=== PATIENT | female | born 1980 | race Caucasian/White ===

== ENCOUNTER 2017-03-30 05:40 | Outpatient (CLI) | payer BC ==
[~2017-03-30] VITALS: Ht 160 cm; Wt 90.7 kg
[2017-03-30] MEDS ORDERED: OMEP20TA7 PO (15:57)
[2017-04-01] MEDS ORDERED: FAMO-119 PO (13:27)
== END 2017-03-30 16:00 ==
LOC: PREOP 05:40
PROVIDERS: ATTEND Internal Medicine
DX: Z01.818 Encounter for other preprocedural examination (principal); K21.9 Gastro-esophageal reflux disease without esophagitis

== ENCOUNTER 2017-04-01 12:38 | Day surgery (SDC) | payer BC ==
--- NOTE | 2017-03-30 06:17 | HISTORY AND PHYSICAL ---
DATE OF SERVICE: EGD HISTORY AND PHYSICAL HISTORY OF PRESENT ILLNESS: The patient is a 36-year-old white female referred by Dr. Rhodes for EGD evaluation. She had been on proton pump inhibitor therapy for several years, but after hearing negative reports, she discontinued the medication last year. Since that time, she has had to take daily Tums most often after the evening meal. She has intermittent dysphagia to solids and odynophagia. She denies any nighttime symptomatology and denies any chronic problems of sore throats, cough or weight loss. She denies bright red blood per rectum or melena and has noted no bowel habit change. PAST MEDICAL HISTORY: Otherwise, noncontributory. PAST SOCIAL HISTORY: She has a distant 1-pack-year smoking history, quit while in college. She has no significant alcohol intake and is a local healthcare network consultant. PAST SURGICAL HISTORY: She has had lumbar microdiskectomy several years ago. She has had three C-sections, a distant tonsillectomy and adenoidectomy and in the summer of 2015, underwent laparoscopic cholecystectomy for acute noncomplicated cholecystitis. FAMILY HISTORY: She is not aware of any family history for GI tract malignancy, Berry's esophagus or inflammatory bowel disease. PHYSICAL EXAMINATION: GENERAL: Reveals a pleasant overweight white female in no acute distress. VITAL SIGNS: Height roughly 5 feet tall. Weight 205 pounds. Blood pressure 120/70. HEENT: Unremarkable. She has a Mallampati class 3 oropharyngeal configuration. Pharynx reveals no evidence for exudate. NECK: Reveals no JVD, adenopathy or bruits. CHEST: Clear. CARDIOVASCULAR: Reveals a regular rate and rhythm without murmur, S3 or S4. ABDOMEN: Soft, supple without mass, organomegaly or tenderness. Bowel sounds are positive. No bruits are noted. EXTREMITIES: Reveal no cyanosis, clubbing or edema. ASSESSMENT: Refractory reflux with intermittent dysphagia to solids. The patient is being set up for esophagogastroduodenoscopy evaluation on 04/01/2017. Preoperative instructions were given and questions were answered. I thank you for the referral of this pleasant lady. Job ID: [id number] DocumentID: [id number] Dictated Date: 03/28/2017 16:36:16 Vascular Neurologist Date: 03/28/2017 17:15:04 Dictated By: VANI CARBAJAL MD
[~2017-04-01] VITALS: Ht 160 cm; Wt 90.7 kg
[~2017-04-01 12:38] MED LIST: OMEP20TA7 PO
[2017-04-01] MEDS ORDERED: D5 LR IV SOLUTION 1,000 ML IV ONE (12:45)
[2017-04-01] MEDS ORDERED: HURRICAINE EXT TUBE (BENZOCAINE) ONE (12:53)
[2017-04-01] MEDS ORDERED: LIDOCAINE JELLY 2% (XYLOCAINE) 5 ML TUBE ONE (12:53)
[2017-04-01] MEDS: fentaNYL INJECTION 100 MCG/2 ML AMP IVP PRN ×2 (13:07→13:15)
[2017-04-01] MEDS: MIDAZOLAM 2 MG/2 ML (VERSED) VIAL IVP PRN ×3 (13:08→13:20)
--- NOTE | 2017-04-01 13:08 | Pre-Op Note & Conscious Sedat ---
Pre-Operative Progress Note H&P Reviewed The H&P was reviewed, patient examined and no changes noted. Date H&P Reviewed: Apr 01, 2017 Time H&P Reviewed: 13:00 Conscious Sedation Pre-Proced ASA Class: 2 Airway Mallampati Classification: ([place] appropriate class) I. II. III, IV Lungs Heart ASA score ASA 1: a normal healthy patient ASA 2: a patient with a mild systemic disease (mid diabetes, controlled hypertension, obesity ASA 3: a patient with a severe systemic disease that limits activity (angina , COPD, prior Myocardial infarction) ASA 4: a patient with an incapacitating disease that is a constant threat to life (CHF, renal failure) ASA 5: a moribund patient not expected to survive 24 hrs. (ruptured aneurysm) ASA 6: a declared brain patient whose organs are being harvested. For emergent operations, add the letter E after the classification Grade 3 Sedation Plan: Analgesia, Amnesia, Plan communicated to team members, Discussed options with patient/fam, Discussed risks with patient/fam Note The patient is an appropriate candidate to undergo the planned procedure, sedation, and anesthesia. The patient immediately re-assessed prior to indication. VANI CARBAJAL MD Apr 01, 2017 13:08
[2017-04-01] MEDS ORDERED: FAMO-119 PO (13:27)
[2017-04-01 13:40] VITALS: BP 110/64
[2017-04-01] MEDS ORDERED: LIDOCAINE JELLY 2% (XYLOCAINE) 5 ML TUBE TOP ONE (13:45)
[2017-04-01] MEDS ORDERED: HURRICAINE EXT TUBE (BENZOCAINE) XX ONE (13:45)
[2017-04-01 14:00] VITALS: BP 103/67
[2017-04-01 14:09] VITALS: BP 124/83
[2017-04-01 14:18] VITALS: BP 124/83
--- NOTE | 2017-04-01 15:19 | OPERATIVE REPORT ---
DATE OF SERVICE: EGD SUMMARY INDICATION FOR THE PROCEDURE: Refractory reflux symptoms. DESCRIPTION OF PROCEDURE: The patient was placed in the left lateral decubitus position. The endoscope was inserted in the oral cavity and under direct visualization, the esophagus was intubated. The endoscope was passed down the esophagus through the stomach and second portion of the duodenum. A careful inspection was made as the endoscope was withdrawn. FINDINGS: Proximal and mid esophagus were unremarkable. Two small 1inear ulcerations were noted at the Z line involving about 10% of the diameter compatible with LA grade A erosive esophagitis. There were no evidence of rings, webs or strictures. No gross evidence to suggest Berry's change. Photograph was obtained and a biopsy from the largest ulcer was submitted for histopathology. The cardia, fundus and antrum of the stomach were unremarkable. The Pylorus, the pyloric channel, the duodenal bulb and second portion of duodenum were normal as well with normal villous architecture to gross inspection of the duodenal bulb and second portion of the duodenum. ASSESSMENT: Small to moderate size hiatal hernia is present with [place] grade A erosive esophagitis. No other abnormalities noted on today's procedure and there was no gross evidence to suggest underlying Berry's change. The patient states that she has only been taking p.r.n. antacid therapy. With concerns about long-term PPI use, I advocated that she try Pepcid 20 mg p.o. b.i.d. with p.r.n. antacid therapy. Non-medication antireflux measures were discussed as well. I thank you for the referral of this pleasant lady. Job ID: [id number] DocumentID: [id number] Dictated Date: 04/01/2017 13:32:36 Monotype Caster Date: 04/01/2017 15:18:56 Dictated By: VANI CARBAJAL MD [facility]
== END 2017-04-01 14:10 | disposition home or self-care (01) ==
LOC: ENDO 12:38
PROVIDERS: ATTEND Internal Medicine
DX: K22.10 Ulcer of esophagus without bleeding (principal); K44.9 Diaphragmatic hernia without obstruction or gangrene; Z87.891 Personal history of nicotine dependence
CPT/HCPCS: 84703

== ENCOUNTER → 2018-11-23 | Outpatient (CLI) | payer BC ==
[~2018-11-23] MED LIST changes: +FAMO-119 PO
--- NOTE | 2018-11-23 15:45 | Diagnostic Imaging Report ---
INDICATION: Lump in the left upper arm. FINDINGS: Sonographic interrogation of the area of lump was performed. There is an echogenic nodule measuring 9 mm x 4 mm x 7 mm. No significant internal vascularity is seen. Features are suggestive of a lipoma. No other abnormalities are seen. IMPRESSION: Probable subcentimeter lipoma at the area of palpable abnormality. Continued follow-up is recommended to confirm stability. Dictated by: Dictated on workstation # [id number]
== END ==
LOC: RAD 15:04
PROVIDERS: ATTEND Family Medicine
DX: R22.32 Localized swelling, mass and lump, left upper limb (principal)
CPT/HCPCS: 76881

== ENCOUNTER → 2020-12-12 | Outpatient (CLI) | payer BC ==
[~2020-12-12] MED LIST changes: +LACTATED RINGERS 1,000 ML IV SCH
[2020-12-12 09:50] VITALS: BP 147/100
== END ==
LOC: SDC 09:37
PROVIDERS: ATTEND Family Medicine
DX: E86.0 Dehydration (principal)
CPT/HCPCS: 96360

== ENCOUNTER → 2021-01-13 | Outpatient (CLI) | payer BC ==
[~2021-01-13] MED LIST changes: -LACTATED RINGERS 1,000 ML IV SCH
--- NOTE | 2021-01-13 15:52 | Diagnostic Imaging Report ---
PROCEDURE: US Non-ob pelvis comp/trans. TECHNIQUE: Multiple realtime grayscale images were obtained of the pelvis in various projections endovaginally. Transabdominal imaging was also performed. INDICATION: Abnormal uterine bleeding. FINDINGS: Uterus measures 10 x 5.1 x 4.7 cm. The endometrium measures 9 mm. There is irregular area of soft tissues in the lower uterine segment near the cervix approximately 1.2 cm. There is some fluid within the lower uterine segment. There is a heterogeneous appearing nodular region in the fundus of the uterus measuring 2.9 cm. Right ovary measures 4 x 2 x 3.4 cm. Left ovary measures 5 x 2.3 x 2.1 cm. There is normal blood flow to both ovaries. There is no free fluid. IMPRESSION: 1. There is a endometrial thickening with concern of endometrial polyp measuring 1.2 cm in the lower uterine segment. There is some associated fluid. Dictated by: Dictated on workstation # [id number]
--- NOTE | 2021-01-14 08:06 | Diagnostic Imaging Report ---
Ultrasound of the left breast. Indication: Left breast pain There are no prior left breast ultrasound examinations available for comparison. The mammogram of the left breast performed earlier today failed to show any sign of malignancy. On this exam there is no discrete solid or cystic mass identified. There is a small 6 x 6 x 5 mm hypoechoic area in the 7 o'clock position approximately 5 cm from the nipple. This is in the region of the patient's pain. This does not have the typical appearance of a cyst and there is no vascularity associated with this finding to suggest that this is neoplastic in nature. This could represent a very small amount of fluid within the duct. It may prove worthwhile to have a short-term (6 month) followup mammogram and ultrasound exam of the left breast for continued evaluation. Impression: The small hypoechoic area in the 7 o'clock position left breast is of uncertain etiology although most likely benign. There is no solid mass to suggest malignancy and there is no sign of an acute abnormality account for the patient's breast pain. Recommendations as above. ACR BI-RADS Category 3: Probably benign findings. Result letter will be mailed to the patient. Note: At least 10% of breast cancer is not imaged by mammography. Dictated by: Dictated on workstation # [id number]
--- NOTE | 2021-01-14 11:44 | Diagnostic Imaging Report ---
EXAMINATION: Digital mammogram bilateral screening with CAD. INDICATION: Screening. COMPARISON: This is the patient's baseline study. PERSONAL HISTORY: The patient does note tenderness in the left breast. FINDINGS: The fibroglandular tissue in both breasts is heterogeneously dense. This does limit the sensitivity of this exam. There is no primary or secondary sign of malignancy noted. There is no abnormality to account for the patient's left breast tenderness either. Reportedly, ultrasound has been scheduled for further study. IMPRESSION: 1. There is no evidence for malignancy or for an acute abnormality. 2. Ultrasound of the left breast is pending for further evaluation. ACR BI-RADS Category 0: Incomplete. (Needs additional imaging evaluation). Result letter will be mailed to the patient. Note: At least 10% of breast cancer is not imaged by mammography. Dictated by: Dictated on workstation # [id number]
== END ==
LOC: RAD 12:48
PROVIDERS: ATTEND Obstetrics & Gynecology
DX: Z12.31 Encounter for screening mammogram for malignant neoplasm of breast (principal); N93.9 Abnormal uterine and vaginal bleeding, unspecified; N64.4 Mastodynia; R93.89 Abnormal findings on diagnostic imaging of other specified body structures
CPT/HCPCS: 76642; 76830; 76856; 77063; 77067

== ENCOUNTER 2021-01-27 06:33 | Outpatient (CLI) | payer BC ==
[~2021-01-27] VITALS: Ht 160 cm; Wt 108.6 kg
[2021-01-28] MEDS ORDERED: OMEP20TA7 PO (10:34)
== END 2021-01-28 10:41 | disposition home or self-care (01) ==
LOC: PREOP 06:33
PROVIDERS: ATTEND Obstetrics & Gynecology
DX: Z01.818 Encounter for other preprocedural examination (principal)

== ENCOUNTER 2021-02-03 08:52 | Day surgery (SDC) | payer BC ==
[2021-02-03] VITALS (11 sets, daily range): BP systolic 91–139; BP diastolic 57–83
[~2021-02-03] VITALS: Ht 160 cm; Wt 108.6 kg
[2021-02-03 09:22] LABS: BILIRUBIN,URINE NEGATIVE (NEGATIVE); CLARITY,URINE CLEAR; COLOR,URINE YELLOW; GLUCOSE, URINE (UA) NEGATIVE (NEGATIVE); KETONES,URINE NEGATIVE (NEGATIVE); LEUKOCYTE ESTERASE ,URINE NEGATIVE (NEGATIVE); NITRITE,URINE NEGATIVE (NEGATIVE); PH,URINE 7.5 (5-9); PROTEIN,URINE NEGATIVE (NEGATIVE)
[2021-02-03 09:28] LABS: BASOPHILS % (AUTO) 1 % (0-10); EOSINOPHILS # (AUTO) 0.1 10^3/uL (0.0-0.3); EOSINOPHILS % (AUTO) 2 % (0-10); HEMATOCRIT 40 % (35-52); HEMOGLOBIN 13.1 g/dL (11.5-16.0); LYMPHOCYTES # (AUTO) 1.7 10^3/uL (1.0-4.0); LYMPHOCYTES % (AUTO) 28 % (12-44); MEAN CORPUSCULAR HEMOGLOBIN 29 pg (25-34); MEAN CORPUSCULAR HGB CONC 33 g/dL (32-36); MEAN CORPUSCULAR VOLUME 88 fL (80-99); MEAN PLATELET VOLUME 9.8 fL (9.0-12.2); MONOCYTES # (AUTO) 0.5 10^3/uL (0.0-1.0); MONOCYTES % (AUTO) 9 % (0-12); NEUTROPHILS # (AUTO) 3.7 10^3/uL (1.8-7.8); NEUTROPHILS % (AUTO) 61 % (42-75); PLATELET COUNT 341 10^3/uL (130-400); WHITE BLOOD COUNT 6.1 10^3/uL (4.3-11.0)
[2021-02-03] MEDS ORDERED: ceFAZolin 2 GM IV Premixed 50 ML IV ONE ×2 (09:30→10:00)
[2021-02-03] MEDS ORDERED: LACTATED RINGERS 1,000 ML IV PRN ×2 (09:30→10:00)
[2021-02-03 09:49] LABS: BACTERIA,URINE FEW /HPF; WBC,URINE 0-2 /HPF
--- NOTE | 2021-02-03 11:01 | History & Physical-Surgical ---
HPO-Surgical History of Present Illness Chief Complaint: thickened endometrium Diagnosis/Surgical Indication: thickened endometrium, AUB, skin lesion Procedure: hysteroscopy, D&C, removal sking lesion Date of Surgery: Feb 03, 2021 Weight (Pounds): 200 Weight (Ounces): 0.0 Height (Feet): 5 Height (Inches): 3.00 Allergies and Home Medications Allergies Coded Allergies: morphine (Verified Allergy, Unknown, makes me claustrophic, 03/30/17) Patient Home Medication List Home Medication List Reviewed: Yes Omeprazole (Omeprazole) 20 Mg Tablet.dr, 20 MG PO DAILY, (Reported) Entered as Reported by: SANTOS LUZ on 01/28/21 1034 Last Action: Reviewed Discontinued Medications Famotidine (Pepcid) 20 Mg Tablet, 20 MG PO BID Discontinued Reason: No Longer Taking Prescribed by: VANI CARBAJAL on 04/01/17 1327 Past Gzlgehj-Izogyf-Krrnys Hx Patient Social History Marrital Status: Number of Children: 3 Number of living children: 3 Employed/Student: employed Smoking Status: Former Smoker Former Smoker, Quit: Mar 30, 1997 2nd Hand Smoke Exposure: No Recent Hopitalizations: No Alcohol Use?: No Seasonal Allergies Seasonal Allergies: No Surgeries Yes (c/s x3, discectomy, bladder neck sx x2, ) Section, Gallbladder, Tonsillectomy, Tubal Ligation Respiratory No Currently Using CPAP: No Currently Using BIPAP: No Cardiovascular No Neurological No Reproductive System Hx : 3 Hx Para: 3 Sexually Transmitted Disease: No HIV/AIDS: No Female Reproductive Disorders: Menstrual Problems Genitourinary No Gastrointestinal Yes Gastroesophageal Reflux Musculoskeletal No Endocrine History of Endocrine Disorders: No HEENT History of HEENT Disorders: No Cancer No Psychosocial History of Psychiatric Problem: No Integumentary History of Skin or Integumenta: Yes (skin tag) Blood Transfusions History of Blood Disorders: No Family Medical History Significant Family History: No Pertinent Family Hx Exam Vital Signs Vital Signs 02/03/21 09:45 Temp 36.6 Pulse 77 Resp 18 B/P (MAP) 118/79 (92) Pulse Ox 99 O2 Delivery Room Air Capillary Refill : Labs Laboratory Tests Test 02/03/21 09:05 02/03/21 09:20 Range/Units Urine Color YELLOW Urine Clarity CLEAR Urine pH 7.5 5-9 Urine Specific [place] 1.020 1.016-1.022 Urine Protein NEGATIVE NEGATIVE Urine Glucose (UA) NEGATIVE NEGATIVE Urine Ketones NEGATIVE NEGATIVE Urine Nitrite NEGATIVE NEGATIVE Urine Bilirubin NEGATIVE NEGATIVE Urine Urobilinogen 0.2 < = 1.0 MG/DL Urine Leukocyte Esterase NEGATIVE NEGATIVE Urine RBC (Auto) NEGATIVE NEGATIVE Urine RBC NONE /HPF Urine WBC 0-2 /HPF Urine Squamous Epithelial Cells 10-25 H /HPF Urine Crystals NONE /LPF Urine Bacteria FEW H /HPF Urine Casts NONE /LPF Urine Mucus SMALL H /LPF Urine Culture Indicated NO White Blood Count 6.1 4.3-11.0 10^3/uL Red Blood Count 4.56 3.80-5.11 10^6/uL Hemoglobin 13.1 11.5-16.0 g/dL Hematocrit 40 35-52 % Mean Corpuscular Volume 88 80-99 fL Mean Corpuscular Hemoglobin 29 25-34 pg Mean Corpuscular Hemoglobin Concent 33 32-36 g/dL Red Cell Distribution Width 13.3 10.0-14.5 % Platelet Count 341 130-400 10^3/uL Mean Platelet Volume 9.8 9.0-12.2 fL Immature Granulocyte % (Auto) 0 % Neutrophils (%) (Auto) 61 42-75 % Lymphocytes (%) (Auto) 28 12-44 % Monocytes (%) (Auto) 9 0-12 % Eosinophils (%) (Auto) 2 0-10 % Basophils (%) (Auto) 1 0-10 % Neutrophils # (Auto) 3.7 1.8-7.8 10^3/uL Lymphocytes # (Auto) 1.7 1.0-4.0 10^3/uL Monocytes # (Auto) 0.5 0.0-1.0 10^3/uL Eosinophils # (Auto) 0.1 0.0-0.3 10^3/uL Basophils # (Auto) 0.0 0.0-0.1 10^3/uL Immature Granulocyte # (Auto) 0.0 0.0-0.1 10^3/uL General Appearance: Alert HEENT: Atraumatic Respiratory: Clear to Auscultation Cardiovascular: Regular Rate Assessment/Plan Assessment and Plan thickened endometrium abnormal uterine bleeding skin lesion Plan - hysteroscopy, dilation and curettage excision of skin lesion Risk of procedure, including bleeding, infection, injury to bowel bladder and ureter has been explained to the patient and proper consents have been signed. Due to findings of probably polyp vs submucosal fibroid, will proceed with diagnostic hysteroscopy and then removal of "mass" with dilation and curettage. Proper consents are signed. Will use prophylactic antibiotics and SCDs THAD CHOWDHURY DO Feb 03, 2021 11:01
[2021-02-03] MEDS ORDERED: LIDOCAINE/EPI 1%-1:200,000 (XYLOCAINE) 30 ML VIAL ONE (11:20)
[2021-02-03] MEDS ORDERED: proPOfol 200 MG/20 ML (DIPRIVAN) VIAL IV ONE (11:26)
[2021-02-03] MEDS ORDERED: MIDAZOLAM 2 MG/2 ML (VERSED) VIAL ONE (11:26)
[2021-02-03] MEDS ORDERED: SEVOFLURANE (ULTANE) 15 ML INHAL SOLN ONE (11:26)
[2021-02-03] MEDS ORDERED: ONDANSETRON 4 MG/2 ML (SDV) Z0FRAN ONE (11:26)
[2021-02-03] MEDS ORDERED: fentaNYL INJ 100 MCG/2 ML AMP ONE (11:26)
[2021-02-03] MEDS ORDERED: LIDOCAINE PF 2% 5 ML (XYLOCAINE) VIAL ONE (11:26)
--- NOTE | 2021-02-03 12:37 | Operative Report ---
Operative Report Date of Procedure/Surgery Feb 03, 2021 Surgeon (s) THAD CHOWDHURY DO Digital Artist (s): NA Post-Operative Diagnosis endometrial polyp abnormal uterine bleeding left inner thigh papilloma/achrochordon Procedure Performed hysteroscopy, dilation and curettage excision of left thich lesion Description of Procedure Anesthesia Type: General Estimated blood loss (mL): minimal Specimen(s) collected/removed endometrial curettings skin achrochordon Description of the Procedure With informed consent the patient was taken to the operating room where general anesthesia was found to be adequate. She was then prepped and draped in the usual sterile fashion in the dorsolithotomy position. The bladder was drained of clear, yellow urine with a straight cath. A speculum was placed in the vagina and the cervix was grasped with a sharp toothed tenaculum. The cervix was then gently dilated with Edy dilators. A hysteroscope was then inserted and hysteroscopy was done. There was proliferative appearing and polypoid tissue noted. After removing the scope, I did a curettage until a gritty texture was heard. I then repeated the scope and this revealed that the polypoid tissue was removed. I removed the instruments from the vagina and uterus. Attention was turned to the left leg which had previously been prepped. I injected Marcaine to create a wheal and elevated the lesion. I then excision the lesion with a scalpel. I controlled bleeding with silver nitrate. The patient was then awakened and taken to recovery in a stable condition. Sponge, lap, needle and instrument counts were correct times two. Findings of the Procedure elevated 2 mm lesion on the left inner thigh proliferative endometrium with polypoid type lesions Allergies and Home Medications Allergies Coded Allergies: morphine (Verified Allergy, Unknown, makes me claustrophic, 03/30/17) Patient Home Medication List Home Medication List Reviewed: Yes Acetaminophen (Acetaminophen) 500 Mg Tablet, 1,000 MG PO Q8H PRN for PAIN-MILD (1-4) Prescribed by: THAD CHOWDHURY on 02/03/21 1238 Ibuprofen (Ibu) 600 Mg Tablet, 600 MG PO Q6HR Prescribed by: THAD CHOWDHURY on 02/03/21 1238 Omeprazole (Omeprazole) 20 Mg Tablet.dr, 20 MG PO DAILY, (Reported) Entered as Reported by: SANTOS LUZ on 01/28/21 1034 Last Action: Reviewed THAD CHOWDHURY DO Feb 03, 2021 12:37
[2021-02-03] MEDS ORDERED: ACET-93 PO (12:38)
[2021-02-03] MEDS ORDERED: IBUP-844 PO (12:38)
--- NOTE | 2021-02-03 12:39 | Discharge Inst-Women's Service ---
Discharge Inst-Women's Serv Depart Medication/Instructions New, Converted or Re-Newed RX: Transmitted to Pharmacy Instructions expect light bleeding, spotting for 7-10 days Final Diagnosis endometrial polyp skin lesion abnormal uterine bleeding Problems Reviewed?: Yes Consults/Follow Up Additional Follow Up: Yes (1-2 weeks) Activity Activity: Activity as Tolerated Driving Instructions: No Driving for 24 Hours NO SMOKING: NO SMOKING Diet Discharge Diet: No Restrictions Symptoms to Report to : Pain Increased, Fever Over 101 Degrees F, Vaginal Bleeding Increase, Vaginal Discharge Foul For Any Problems or Questions: Contact Your Physician THAD CHOWDHURY DO Feb 03, 2021 12:39
[2021-02-03] MEDS ORDERED: HYDROmorphone 2 MG/ML VIAL (DILAUDID) IV ONE (12:45)
[2021-02-03] MEDS ORDERED: ONDANSETRON 4 MG/2 ML (SDV) Z0FRAN IVP PRN (12:45)
[2021-02-03] MEDS ORDERED: fentaNYL INJ 100 MCG/2 ML AMP IVP ONE (12:45)
[2021-02-03] MEDS ORDERED: ACETAMINOPHEN 500 MG TAB (TYLENOL) PO PRN (12:45)
[2021-02-03] MEDS ORDERED: KETOROLAC 30 MG/ML VIAL IVP PRN (12:45)
[2021-02-03] MEDS ORDERED: PROMETHAZINE INJ 25 MG/ML (PHENERGAN) AMP IVP ONE (12:45)
[2021-02-03] MEDS ORDERED: MEPERIDINE (DEMEROL) INJ 50 MG/ML IVP ONE (12:45)
--- NOTE | 2021-02-03 12:47 | Anesthesia-General Post-Op ---
General Patient Condition Mental Status/LOC: Same as Preop Cardiovascular: Satisfactory Nausea/Vomiting: Absent Respiratory: Satisfactory Pain: Controlled Complications: Absent Post Op Complications Complications None Follow Up Care/Instructions Patient Instructions None needed. Anesthesia/Patient Condition Patient Condition Patient is doing well, no complaints, stable vital signs, no apparent adverse anesthesia problems. No complications reported per nursing. RAMON RASMUSSEN CRNA Feb 03, 2021 12:47
[2021-02-03] MEDS ORDERED: IBUPROFEN 600 MG (MOTRIN) TAB PO SCH (18:00)
== END 2021-02-03 14:45 | disposition home or self-care (01) ==
LOC: SDC 08:52
PROVIDERS: ATTEND Obstetrics & Gynecology
DX: N84.0 Polyp of corpus uteri (principal); D18.01 Hemangioma of skin and subcutaneous tissue; Z79.1 Long term (current) use of non-steroidal anti-inflammatories (NSAID); Z79.899 Other long term (current) drug therapy; K21.9 Gastro-esophageal reflux disease without esophagitis; E66.9 Obesity, unspecified; Z68.42 Body mass index [BMI] 45.0-49.9, adult; Z87.891 Personal history of nicotine dependence; Z98.51 Tubal ligation status; Z98.890 Other specified postprocedural states
CPT/HCPCS: 36415; 81000; 84703; 85025; 87081; 88305

== ENCOUNTER 2021-03-17 05:32 | Outpatient (CLI) | payer BC ==
[~2021-03-17] VITALS: Ht 160 cm; Wt 109.5 kg
[~2021-03-17 05:32] MED LIST changes: +ACET-93 PO; +IBUP-844 PO
== END 2021-03-18 15:59 | disposition home or self-care (01) ==
LOC: PREOP 05:32
PROVIDERS: ATTEND Obstetrics & Gynecology
DX: Z01.818 Encounter for other preprocedural examination (principal)

== ENCOUNTER 2021-03-24 06:04 | Day surgery (SDC) | payer BC ==
[~2021-03-24] VITALS: Ht 160 cm; Wt 109.5 kg
[2021-03-24] VITALS (11 sets, daily range): BP systolic 110–153; BP diastolic 55–89
[2021-03-24] MEDS: LACTATED RINGERS 1,000 ML IV PRN ×3 (06:30→09:32)
[2021-03-24 06:51] LABS: BASOPHILS % (AUTO) 1 % (0-10); EOSINOPHILS # (AUTO) 0.1 10^3/uL (0.0-0.3); EOSINOPHILS % (AUTO) 2 % (0-10); HEMATOCRIT 40 % (35-52); HEMOGLOBIN 12.7 g/dL (11.5-16.0); LYMPHOCYTES # (AUTO) 1.3 10^3/uL (1.0-4.0); LYMPHOCYTES % (AUTO) 33 % (12-44); MEAN CORPUSCULAR HEMOGLOBIN 28 pg (25-34); MEAN CORPUSCULAR HGB CONC 32 g/dL (32-36); MEAN CORPUSCULAR VOLUME 88 fL (80-99); MEAN PLATELET VOLUME 9.8 fL (9.0-12.2); MONOCYTES # (AUTO) 0.6 10^3/uL (0.0-1.0); MONOCYTES % (AUTO) 14 % (0-12); NEUTROPHILS # (AUTO) 1.9 10^3/uL (1.8-7.8); NEUTROPHILS % (AUTO) 50 % (42-75); PLATELET COUNT 310 10^3/uL (130-400); WHITE BLOOD COUNT 3.9 10^3/uL (4.3-11.0)
[2021-03-24] MEDS ORDERED: ceFAZolin 2 GM IV Premixed 50 ML IV ONE (07:00)
[2021-03-24] MEDS ORDERED: BUPIVACAINE 0.25% 30 ML (SENSORCAINE) VIAL ONE (07:12)
[2021-03-24] MEDS ORDERED: ROCURONIUM 10 MG/ML 5 ML SYRINGE IV ONE ×2 (07:15→09:06)
[2021-03-24] MEDS ORDERED: proPOfol 200 MG/20 ML (DIPRIVAN) VIAL IV ONE (07:15)
[2021-03-24] MEDS ORDERED: NEOSTIGMINE 3 MG/3 ML VIAL ONE (07:15)
[2021-03-24] MEDS ORDERED: fentaNYL INJ 100 MCG/2 ML AMP ONE (07:15)
[2021-03-24] MEDS ORDERED: GLYCOPYRROLATE 0.2 MG/ML (ROBINUL) 2 ML VIAL ONE (07:15)
[2021-03-24] MEDS ORDERED: ONDANSETRON 4 MG/2 ML (SDV) Z0FRAN ONE (07:15)
[2021-03-24] MEDS ORDERED: LIDOCAINE PF 2% 5 ML (XYLOCAINE) VIAL ONE (07:15)
[2021-03-24] MEDS ORDERED: MIDAZOLAM 2 MG/2 ML (VERSED) VIAL ONE (07:15)
--- NOTE | 2021-03-24 07:50 | Progress Note-Pre Operative ---
Pre-Operative Progress Note H&P Reviewed The H&P was reviewed, patient examined and no changes noted. All questions were asked and answered to patient satisfaction. She gave verbal consent to "remove ovary if there is something wrong with it". She has been consented for robotic assisted total hysterectomy, bilateral salpingectomy (partial), OIP, which could include lysis of adhesions and oophorectomy or ovarian cystectomy. she understands the risks of surgery which include, but are not limited to, bleeding, infection, injury to bowel, bladder, ureter and surrounding structures, complications related to anesthesia, blood clots (DVT, PE), and related to these. She has signed appropriate consents. She has completed childbearing and understands that once her uterus is removed, she is unable to bear children. Date Seen by Provider: Mar 24, 2021 Time Seen by Provider: 07:40 Date H&P Reviewed: Mar 24, 2021 Time H&P Reviewed: 07:40 Pre-Operative Diagnosis: abnormal uterine bleeding, uterine fibroids THAD CHOWDHURY DO Mar 24, 2021 07:50
[2021-03-24 09:24] LABS: BILIRUBIN,URINE NEGATIVE (NEGATIVE); CLARITY,URINE CLEAR; COLOR,URINE YELLOW; GLUCOSE, URINE (UA) NEGATIVE (NEGATIVE); KETONES,URINE NEGATIVE (NEGATIVE); LEUKOCYTE ESTERASE ,URINE NEGATIVE (NEGATIVE); NITRITE,URINE NEGATIVE (NEGATIVE); PH,URINE 7.5 (5-9); PROTEIN,URINE NEGATIVE (NEGATIVE)
[2021-03-24 09:31] LABS: AMORPHOUS SEDIMENT,UR FEW AMOR URATES /LPF; BACTERIA,URINE TRACE /HPF
[2021-03-24] MEDS ORDERED: SEVOFLURANE (ULTANE) 15 ML INHAL SOLN ONE (10:07)
--- NOTE | 2021-03-24 10:08 | Operative Report ---
Operative Report Date of Procedure/Surgery Mar 24, 2021 Surgeon (s) THAD CHOWDHURY DO Lugger (s): NA Post-Operative Diagnosis uterine fibroids vesicouterine adhesions Procedure Performed RaTH, bilateral salpingectomy lysis of vesicouterine adhesions Description of Procedure Anesthesia Type: General Estimated blood loss (mL): minimal Specimen(s) collected/removed uterus, bilateral tubes Description of the Procedure After informed consent was obtained, patient was taken into the operating room where general anesthetic was found to be adequate. She was prepped and draped in the usual sterile fashion in the dorsal lithotomy position. A Mohan catheter was placed. A speculum was placed in the vagina. The cervix was visualized and the anterior lip was grasped with a sharp toothed tenaculum. The uterus was sounded and depth was approximately 8 centimeters. I placed the Rachael device (8 cm) and a 3.0 cm collar was advanced over the cervix. I inserted the Rachael without difficulty, inflating the balloon and securing it around the fornix of the cervix. The collar was then secured with sutures at 12 o'clock. Attention was then turned to the patient's abdomen. The skin was injected with 0.25% Marcaine. A supraumbilical incision was made about 8 mm in length. A Veress needle was inserted and I confirmed intraabdominal placement with a drop in pressure and the saline drop test. The opening pressure was 7 mmHg. I then insufflated the abdomen to a maximum of 15 mmHg with warmed CO2 gas. I placed an additional 8 mm trocar approximately 15 cm lateral to the umbilicus on the left. The second robotic port was placed about 12 cm lateral to the right of the umbilical placement. This was an 8 mm trocar. These were placed under direct visualization of the laparoscope. 0.25% Marcaine was injected prior to placement of all trocars. When all placements were confirmed, the patient was placed in steep Trendelenburg allowing adequate visualization and the robot was brought in for docking. The docking was accomplished without difficulty. I then took over the command of the robot utilizing the synchroseal and monopolar checo. I proceeded with a bilateral salpingectomy. I incised the mesosalpinx bilaterally with the monopolar checo. Then I grasped the round ligaments bilaterally and cauterized with bipolar cautery and then cut with my checo. I then grasped the uterine ovarian ligaments separately bilaterally and cauterized and cut with the synchroseal. I then moved my dissection to the posterior leaves of the broad ligament. I dissected the posterior leaves of the broad ligament off the uterine arteries skeletonizing them bilaterally. I then took a second clamp with the synchroseal and with the checo, transected the vessels away from the lateral aspect to the cervical stroma. There were very extensive vesicouterine adhesions from the previous sections. I dissected the anterior peritoneum off the lower uterine segment. I continually pushed the bladder back and I took excessively great care and I was eventually able to dissect the vesicouterine peritoneum off the lower uterine segment. I then dissected in a V fashion towards the midline between the uterosacral ligaments. This allowed me to skeletonize the uterine vessels bilaterally. The balloon on the RACHAEL was insufflated. This allowed me to see the RACHAEL circumferentially. I then performed a colpotomy anteriorly and then amputate with cervix away from the vaginal fornix. I then continued the colpotomy circumferentially. At this point, the uterus was removed through the vagina. The high school assistant principal left a sponge in the vagina to keep the pneumoperitoneum. I then began closure of the vaginal cuff. I closed the apices of the vaginal cuff with 2-0 Vicryl V lock sutures with a colposuspension through the uterosacral ligaments. This suspended the apices of the vaginal cuff. I extended this to the midline from both sides and overlapped the V lock sutures in the midline. Excellent closure is noted and hemostasis is achieved. All the needles were removed from the patient's abdomen. Now, the robotic instruments were removed and the robot was docked back to laparoscopy. The pelvis was irrigated. There was no active bleeding noted. Bilateral ureters were seen the entire time during the surgery and were peristalsing. There was no excessive bleeding noted. The trocars were removed under direct visualization. The laparoscopic sites were visualized and found to be hemostatic. The trocar sites were injected with 0.25% Marcaine. The skin incisions were closed with 4-0 Monocryl in a subcuticular fashion and then with Dermabond. Op sites were placed over the incision sites. The instruments were removed from the vagina and I noted there were no abrasions. Sponge, lap, needle and instrument counts correct times two. Patient was awakened and taken to recovery in a stable condition. Findings of the Procedure boggy enlarged uterus with fibroids normal appearing ovaries with follicular cysts noted Adhesions over the lower uterine segment from previous cs adhesions of tubes and ovaries left pelvic sidewall adhesions Allergies and Home Medications Allergies Coded Allergies: morphine (Verified Allergy, Unknown, makes me claustrophic, 03/30/17) shellfish derived (Verified Allergy, Unknown, 03/18/21) Patient Home Medication List Home Medication List Reviewed: Yes Acetaminophen (Acetaminophen) 500 Mg Tablet, 1,000 MG PO Q8H PRN for PAIN-MILD (1-4) Prescribed by: THAD CHOWDHURY on 02/03/21 1238 Ibuprofen (Ibu) 600 Mg Tablet, 600 MG PO Q6HR Prescribed by: THAD CHOWDHURY on 02/03/21 1238 Omeprazole (Omeprazole) 20 Mg Tablet.dr, 20 MG PO DAILY, (Reported) Entered as Reported by: SANTOS LUZ on 01/28/21 1034 Last Action: Last Taken THAD Gordon DO Mar 24, 2021 10:07
[2021-03-24] MEDS ORDERED: NALOXONE 0.4 MG/ML 1 ML (NARCAN) VIAL IV PRN (10:15)
[2021-03-24] MEDS ORDERED: ONDANSETRON 4 MG (ZOFRAN) ORAL DISSOLVE TAB PO PRN (10:15)
[2021-03-24] MEDS ORDERED: fentaNYL INJ 100 MCG/2 ML AMP IVP PRN (10:15)
[2021-03-24] MEDS ORDERED: HYDROmorphone 2 MG/ML VIAL (DILAUDID) IV ONE (10:30)
[2021-03-24] MEDS ORDERED: KETOROLAC 30 MG/ML VIAL ONE (10:30)
[2021-03-24] MEDS ORDERED: HYDROmorphone 2 MG/ML VIAL (DILAUDID) ONE (10:30)
[2021-03-24] MEDS ORDERED: fentaNYL INJ 100 MCG/2 ML AMP IVP ONE (10:30)
[2021-03-24] MEDS ORDERED: ONDANSETRON 4 MG/2 ML (SDV) Z0FRAN IVP PRN (10:30)
[2021-03-24] MEDS: KETOROLAC 30 MG/ML VIAL IV SCH ×3 (10:33→20:43)
[2021-03-24] MEDS: ACETAMINOPHEN 500 MG TAB (TYLENOL) PO SCH (14:08)
[2021-03-24] MEDS ORDERED: diphenhydrAMINE 25 MG TAB (BENADRYL) PO PRN (14:45)
[2021-03-24] MEDS: LACTATED RINGERS 1,000 ML IV SCH ×2 (18:15→18:20)
[2021-03-24] MEDS ORDERED: traZODone 50 MG (DESYREL) TAB PO SCH (21:00)
[2021-03-25 00:21] VITALS: BP 106/51
[2021-03-25] MEDS: ACETAMINOPHEN 500 MG TAB (TYLENOL) PO SCH ×2 (00:21→09:14)
[2021-03-25] MEDS: KETOROLAC 30 MG/ML VIAL IV SCH (03:39)
[2021-03-25 07:30] VITALS: BP 117/60
--- NOTE | 2021-03-25 08:30 | Discharge Inst-Women's Service ---
Discharge Inst-Women's Serv Depart Medication/Instructions New, Converted or Re-Newed RX: Other (patient has at home, no rx sent) Final Diagnosis abnormal uterine bleeding enteropelvic adhesions uterovaginal adhesions Problems Reviewed?: Yes Consults/Follow Up Additional Follow Up: Yes (1 week for incision check; 6 [address] op [address] Acuna) Activity Activity: Activity as Tolerated Driving Instructions: No Driving for 1 Week NO SMOKING: NO SMOKING Nothing Inside Vagina: No Douching, No Crystal (until cleared (at least 8 weeks)), No Tampons Diet Discharge Diet: No Restrictions Symptoms to Report to : Swelling Increased, Bleeding Excessive, Pain Increased, Fever Over 101 Degrees F, Vaginal Bleeding Increase, Cramps in Feet or Legs, Vaginal Discharge Foul For Any Problems or Questions: Contact Your Physician Skin/Wound Care Infection Signs and Symptoms: Increased Redness, Foul Odor of Wound, Increased Drainage, Skin Itchy or Has a Rash, Increased Swelling, Temperature Above 101 F Operative Area Clean and Dry: You May Remove Bandage (iin 2 days, or if soiled/wet) Stitches/Kelin/Dermabond: Dermabond Bathing Instructions: THAD Nesbitt DO Mar 25, 2021 08:30
[2021-03-25] MEDS ORDERED: IBUPROFEN 600 MG (MOTRIN) TAB PO ONE (09:06)
[2021-03-25 09:40] VITALS: BP 117/60
[2021-03-25] MEDS ORDERED: IBUPROFEN 600 MG (MOTRIN) TAB PO SCH (12:00)
--- NOTE | 2021-03-25 14:14 | Anesthesia-General Post-Op ---
General Patient Condition Mental Status/LOC: Same as Preop Cardiovascular: Satisfactory Nausea/Vomiting: Absent Respiratory: Satisfactory Pain: Controlled Complications: Absent Post Op Complications Complications None Follow Up Care/Instructions Patient Instructions None needed. Anesthesia/Patient Condition Patient Condition Patient is doing well, no complaints, stable vital signs, no apparent adverse anesthesia problems. No complications reported per nursing. BRANDY SCHROEDER CRNA Mar 25, 2021 14:14
== END 2021-03-25 09:40 | disposition home or self-care (01) ==
LOC: SDC 06:04 → WS 11:37 → SDC 03-25 09:40
PROVIDERS: ATTEND Obstetrics & Gynecology
DX: D25.1 Intramural leiomyoma of uterus (principal); D25.2 Subserosal leiomyoma of uterus; N84.0 Polyp of corpus uteri; N80.0 Endometriosis of uterus; N73.6 Female pelvic peritoneal adhesions (postinfective); E66.01 Morbid (severe) obesity due to excess calories; Z68.41 Body mass index [BMI] 40.0-44.9, adult; Z98.890 Other specified postprocedural states
CPT/HCPCS: 36415; 81000; 84703; 85025; 86850; 86900; 86901; 87081; 88307; 94664